=== PATIENT | male | born 1945 | race African-American/Black ===

== ENCOUNTER 2025-07-07 03:16 | Emergency (ER) | payer SELFPAY ==
[~2025-07-07] VITALS: Ht 165.1 cm; Wt 74.2 kg
[2025-07-07 03:29] VITALS: O2SAT 98
[2025-07-07] MEDS: LIDOCAINE 5% PATCH TOP STA (05:54)
[2025-07-07] MEDS: IBUPROFEN 800MG TABLET PO ONE (05:54)
[2025-07-07] MEDS ORDERED: IBUP-2030 MT (07:49)
[2025-07-07] MEDS: PREDNISONE 20MG TABLET PO ONE (08:02)
[2025-07-07] MEDS: COLCHICINE 0.6MG TABLET PO ONE (08:03)
[2025-07-07 08:09] VITALS: BP 142/83; PULSE 56; RESP 18; TEMP 36.8; O2SAT 99
== END 2025-07-07 08:11 | disposition home or self-care (01) ==
LOC: ER 03:16
DX: M10.9 Gout, unspecified (principal); I10 Essential (primary) hypertension; I87.1 Compression of vein; Z90.49 Acquired absence of other specified parts of digestive tract; Z79.899 Other long term (current) drug therapy
CPT/HCPCS: 99284; 93971; 73560; J7512